=== PATIENT | male | born 1975 | race Caucasian/White ===

== ENCOUNTER → 2016-12-01 | Outpatient (CLI) | payer MEDICAID ==
[~2016-12-01] MED LIST: ACET-62 PO; METF500T4 PO; PROM25TA7; hydrocodone
== END ==
LOC: NWCC 08:26
PROVIDERS: ATTEND Internal Medicine
DX: E11.621 Type 2 diabetes mellitus with foot ulcer (principal); L97.412 Non-pressure chronic ulcer of right heel and midfoot with fat layer exposed; E11.21 Type 2 diabetes mellitus with diabetic nephropathy; M86.18 Other acute osteomyelitis, other site; Z89.9 Acquired absence of limb, unspecified; B35.1 Tinea unguium; B96.89 Other specified bacterial agents as the cause of diseases classified elsewhere
CPT/HCPCS: 11042; 87070; 87075; 87147; 87186; 87205; A6209; A6210; G0463

== ENCOUNTER → 2016-12-08 | Outpatient (CLI) | payer MEDICAID ==
[~2016-12-08] MED LIST changes: +SILVER NITRATE APPLICATOR TOP ONE
== END ==
LOC: NWCC 08:23
PROVIDERS: ATTEND Internal Medicine
DX: E11.621 Type 2 diabetes mellitus with foot ulcer (principal); L97.412 Non-pressure chronic ulcer of right heel and midfoot with fat layer exposed
CPT/HCPCS: 11042; A6209

== ENCOUNTER → 2016-12-22 | Outpatient (CLI) | payer MEDICAID ==
[~2016-12-22] MED LIST changes: -SILVER NITRATE APPLICATOR TOP ONE
== END ==
LOC: NWCC 09:51
PROVIDERS: ATTEND Internal Medicine
DX: E11.621 Type 2 diabetes mellitus with foot ulcer (principal); L97.412 Non-pressure chronic ulcer of right heel and midfoot with fat layer exposed

== ENCOUNTER → 2017-02-24 | Outpatient (CLI) | payer MEDICAID ==
--- NOTE | 2017-02-24 15:56 | DI ---
Indication: ITS.REASON: M54.5 LBP, M54.17 LUMBAR RADICULOPATHY PROCEDURE: MRI LUMBAR SPINE W/O CONTRAST: Encounter: Initial Comparison: None Technique: Multiplanar multisequence MR imaging of the lumbar spine was performed without contrast. Findings: Alignment of the lumbar spine is within normal limits. No acute fracture identified. Bone marrow signal intensity is normal. Conus medullaris terminates normally at L2. Paraspinal soft tissues are within normal limits. Segmental analysis: L1-L2: Normal L2-L3: Normal L3-L4: Normal L4-L5: Mild lateral bulging and degenerative facet disease without central canal stenosis. No significant neural foraminal stenosis. L5-S1: Minimal central disk bulging without central canal stenosis. Mild bilateral neural foraminal narrowing. Impression: Mild bilateral neural foraminal narrowing at L5-S1. .
== END ==
LOC: IMA 13:06
PROVIDERS: ATTEND Family Medicine
DX: M51.17 Intervertebral disc disorders with radiculopathy, lumbosacral region (principal); M54.5 Low back pain